=== PATIENT | male | born 1945 | race Caucasian/White ===

== ENCOUNTER → 2017-12-09 | Outpatient (CLI) | payer MEDICARE ==
[~2017-12-09] MED LIST: ALBU90OI6 INH; ALLO300 PO; ALPR.5 PO; AMIO200 PO; ASPI81EC PO; BUDE10.22; CALCA500CH; CELE200 PO; CEPASTAT PO; CLOP75 PO; ESCI10 PO; FINA5 PO; GABA300 PO; GLUC500 PO; LEVSOD100 PO; LEVSOD125 PO; METO25ER; METO25ER PO; Monodox100 MG PO; OMEP20ER PO; OXYC5 PO; PRED10 PO; PRED20 PO; PSYL5.85P PO; SIMV10 PO; SIMV40 PO; SIMV80 PO; TAMS.4ER PO; TIOT18; TRIA80TC TOP; Ventolin Soln3 ML INH; Ventolin/Prove6.7 GM INH; WARF3 PO; [UNRECOGNIZED DRUG - REMARK]
[2017-12-09 12:52] LABS: BASOPHILS ABSOLUTE AUTO 0.07 K/mm3 (0.00-0.23); BASOPHILS PERCENT AUTO 1 % (0-2); EOSINOPHILS ABSOLUTE AUTO 0.44 K/mm3 (0.00-0.68); EOSINOPHILS PERCENT AUTO 7 % (0-6); Hematocrit 44.1 % (37.0-53.0); IMMATURE GRAN ABSOLUTE AUTO 0.02 K/mm3 (0.00-0.10); IMMATURE GRAN PERCENT AUTO 0 % (0-1); LYMPHOCYTES ABSOLUTE AUTO 1.36 K/mm3 (0.84-5.20); LYMPHOCYTES PERCENT AUTO 22 % (21-46); MONOCYTES ABSOLUTE AUTO 0.76 K/mm3 (0.16-1.47); MONOCYTES PERCENT AUTO 12 % (4-13); Mean Corpuscular HGB 30.7 pg (26.0-34.0); Mean Corpuscular Volume 90 fL (80-100); NEUTROPHILS ABSOLUTE AUTO 3.62 K/mm3 (1.96-9.15); NEUTROPHILS PERCENT AUTO 58 % (41-73); Platelet Count 269 K/mm3 (150-400); RDW Coefficient Variation 13.5 % (11.7-14.2); RDW Standard Deviation 44.5 fL (35.1-46.3); Red Blood Cell Count 4.88 M/mm3 (4.30-5.90); White Blood Cell Count 6.27 K/mm3 (4.00-11.30)
[2017-12-09 13:04] LABS: Anion Gap 11 mmol/L (6-16); Blood Urea Nitrogen 10 mg/dL (8-24); Bun/Creatinine Ratio 8.7 (12.0-20.0); CO2, Blood 29 mmol/L (21-32); Calcium, Blood 8.8 mg/dL (8.5-10.1); Chloride, Blood 103 mmol/L (98-108); Creatinine, Blood 1.15 mg/dL (0.60-1.20); Glomerular Filtration Rate >60 (60-); Glucose, Blood 91 mg/dL (70-99); Potassium, Blood 3.9 mmol/L (3.5-5.5); Sodium, Blood 143 mmol/L (136-145)
[2017-12-09 13:05] LABS: Troponin I <0.017 ng/mL (0.000-0.040)
== END | disposition home or self-care (01) ==
LOC: LAB SHORT 12:45 → LAB EV 12:45
PROVIDERS: Physician Assistant Medical
DX: Z79.01 Long term (current) use of anticoagulants (principal); Z51.81 Encounter for therapeutic drug level monitoring; R06.00 Dyspnea, unspecified
CPT/HCPCS: 36416; 80048; 84484; 85025; 85379; 85610

== ENCOUNTER → 2019-01-11 | Outpatient (CLI) | payer MEDICARE ==
[~2019-01-11] MED LIST changes: +ACET325 PO; +ALBU90OI INH; +BUDE6HFA INH; +ELIQUIS2.5 MG PO; +GABA300; +LEVO-T137 MCG PO; +METAMUCIL MULT660 GM PO; +OMEPRAZOLE20 MG PO; +TIOT18 INH; +VITAMIN D32000 UNI2 PO; +Zocor20 MG PO
== END | disposition home or self-care (01) ==
LOC: PLD 16:36 → LAB SHORT 16:36
DX: B07.8 Other viral warts (principal)
CPT/HCPCS: 88305

== ENCOUNTER 2019-03-16 09:21 | Day surgery (SDC) | payer MEDICARE ==
[~2019-03-16] VITALS: Ht 193 cm; Wt 94.5 kg
== END 2019-03-16 12:37 | disposition home or self-care (01) ==
LOC: ORSCSDS 09:21
DX: Z12.11 Encounter for screening for malignant neoplasm of colon (principal); Z86.010 Personal history of colon polyps; K29.70 Gastritis, unspecified, without bleeding; K22.70 Barrett's esophagus without dysplasia; K44.9 Diaphragmatic hernia without obstruction or gangrene; D12.3 Benign neoplasm of transverse colon; D12.2 Benign neoplasm of ascending colon; D12.5 Benign neoplasm of sigmoid colon; K57.30 Diverticulosis of large intestine without perforation or abscess without bleeding; K64.8 Other hemorrhoids; Z86.718 Personal history of other venous thrombosis and embolism; Z79.01 Long term (current) use of anticoagulants; I48.91 Unspecified atrial fibrillation; Z86.73 Personal history of transient ischemic attack (TIA), and cerebral infarction without residual deficits; E03.9 Hypothyroidism, unspecified; Z87.891 Personal history of nicotine dependence; Z79.899 Other long term (current) drug therapy
CPT/HCPCS: 88305; 88341; 88342; J2704; J7120

== ENCOUNTER 2020-05-02 12:56 | Emergency (ER) | payer MEDICARE ==
[~2020-05-02] VITALS: Ht 193 cm; Wt 210.0 kg
[~2020-05-02 12:56] MED LIST changes: -GABA300; +Loperamide2 MG PO
[2020-05-02 13:44] LABS: BASOPHILS ABSOLUTE AUTO 0.05 K/mm3 (0.00-0.23); BASOPHILS PERCENT AUTO 1 % (0-2); EOSINOPHILS PERCENT AUTO 1 % (0-6); Hematocrit 45.6 % (37.0-53.0); Hemoglobin 14.7 g/dL (13.5-17.5); IMMATURE GRAN ABSOLUTE AUTO 0.05 K/mm3 (0.00-0.10); IMMATURE GRAN PERCENT AUTO 1 % (0-1); LYMPHOCYTES ABSOLUTE AUTO 2.22 K/mm3 (0.84-5.20); LYMPHOCYTES PERCENT AUTO 25 % (21-46); MONOCYTES ABSOLUTE AUTO 1.26 K/mm3 (0.16-1.47); MONOCYTES PERCENT AUTO 14 % (4-13); Mean Corpuscular HGB 29.6 pg (26.0-34.0); Mean Corpuscular HGB Conc 32.2 g/dL (31.5-36.5); Mean Corpuscular Volume 92 fL (80-100); Mean Platelet Volume 9.5 fL (9.1-12.4); NEUTROPHILS ABSOLUTE AUTO 5.28 K/mm3 (1.96-9.15); NEUTROPHILS PERCENT AUTO 59 % (41-73); Platelet Count 353 K/mm3 (150-400); RDW Standard Deviation 43.9 fL (35.1-46.3); Red Blood Cell Count 4.97 M/mm3 (4.30-5.90); White Blood Cell Count 8.96 K/mm3 (4.00-11.30)
[2020-05-02 14:09] LABS: Alanine Aminotransfer (ALT/SGP 16 U/L (12-78); Albumin, Blood 3.8 g/dL (3.4-5.0); Albumin/Globulin Ratio 1.2 (0.8-1.8); Alk Phos 65 U/L (50-136); Anion Gap 8 mmol/L (6-16); Aspartate Aminotrans (AST/SGOT 19 U/L (12-37); Bilirubin, Total 0.9 mg/dL (0.1-1.0); Blood Urea Nitrogen 17 mg/dL (8-24); Bun/Creatinine Ratio 16.3 (12.0-20.0); CO2, Blood 23 mmol/L (21-32); Calcium, Blood 8.8 mg/dL (8.5-10.1); Chloride, Blood 109 mmol/L (98-108); Creatinine, Blood 1.04 mg/dL (0.60-1.20); Globulin, Blood 3.3 g/dL (2.2-4.0); Glomerular Filtration Rate >60 (60-); Glucose, Blood 105 mg/dL (70-99); Potassium, Blood 4.3 mmol/L (3.5-5.5); Sodium, Blood 140 mmol/L (136-145); Total Protein, Blood 7.1 g/dL (6.4-8.2); Troponin I <0.015 ng/mL (0.000-0.040)
== END 2020-05-02 16:55 | disposition home or self-care (01) ==
LOC: ER 12:56
PROVIDERS: Physician Assistant
DX: R55 Syncope and collapse (principal); E86.0 Dehydration; I48.91 Unspecified atrial fibrillation; J44.9 Chronic obstructive pulmonary disease, unspecified; K21.9 Gastro-esophageal reflux disease without esophagitis; Z88.5 Allergy status to narcotic agent; Z86.73 Personal history of transient ischemic attack (TIA), and cerebral infarction without residual deficits; Z79.899 Other long term (current) drug therapy
CPT/HCPCS: 36415; 70450; 80053; 84484; 85025; 93005; 93010; 96360; 99284-25; J7030

== ENCOUNTER 2020-10-08 10:45 | Emergency (ER) | payer MEDICARE ==
[~2020-10-08] VITALS: Ht 193 cm; Wt 99.8 kg
[2020-10-08 11:28] LABS: BASOPHILS ABSOLUTE AUTO 0.06 K/mm3 (0.00-0.23); BASOPHILS PERCENT AUTO 1 % (0-2); EOSINOPHILS ABSOLUTE AUTO 0.37 K/mm3 (0.00-0.68); EOSINOPHILS PERCENT AUTO 5 % (0-6); Hemoglobin 14.4 g/dL (13.5-17.5); IMMATURE GRAN ABSOLUTE AUTO 0.03 K/mm3 (0.00-0.10); IMMATURE GRAN PERCENT AUTO 0 % (0-1); LYMPHOCYTES PERCENT AUTO 20 % (21-46); MONOCYTES ABSOLUTE AUTO 0.82 K/mm3 (0.16-1.47); MONOCYTES PERCENT AUTO 12 % (4-13); Mean Corpuscular HGB 28.6 pg (26.0-34.0); Mean Corpuscular Volume 89 fL (80-100); Mean Platelet Volume 9.6 fL (9.1-12.4); NEUTROPHILS ABSOLUTE AUTO 4.24 K/mm3 (1.96-9.15); NEUTROPHILS PERCENT AUTO 61 % (41-73); Platelet Count 324 K/mm3 (150-400); RDW Coefficient Variation 14.7 % (11.7-14.2); RDW Standard Deviation 48.1 fL (35.1-46.3); Red Blood Cell Count 5.04 M/mm3 (4.30-5.90); White Blood Cell Count 6.92 K/mm3 (4.00-11.30)
[2020-10-08 11:56] LABS: Alanine Aminotransfer (ALT/SGP 20 U/L (12-78); Albumin/Globulin Ratio 1.1 (0.8-1.8); Alk Phos 67 U/L (50-136); Anion Gap 5 mmol/L (6-16); Aspartate Aminotrans (AST/SGOT 22 U/L (12-37); Blood Urea Nitrogen 12 mg/dL (8-24); Bun/Creatinine Ratio 12.7 (12.0-20.0); CO2, Blood 28 mmol/L (21-32); Calcium, Blood 8.9 mg/dL (8.5-10.1); Chloride, Blood 106 mmol/L (98-108); Creatinine, Blood 0.95 mg/dL (0.60-1.20); Globulin, Blood 3.5 g/dL (2.2-4.0); Glomerular Filtration Rate >60 (60-); Glucose, Blood 91 mg/dL (70-99); Sodium, Blood 139 mmol/L (136-145); Total Protein, Blood 7.5 g/dL (6.4-8.2)
[2020-10-08] MEDS ORDERED: PRED20 PO (13:41)
[2020-10-08] MEDS ORDERED: ALBU90OI INH (13:41)
== END 2020-10-08 14:00 | disposition home or self-care (01) ==
LOC: ER 10:45
PROVIDERS: Emergency Medicine
DX: J44.1 Chronic obstructive pulmonary disease with (acute) exacerbation (principal)
CPT/HCPCS: 36415; 71045; 80053; 85025; 93005; 93010; 94644; 96374; 99285-25; J2930

== ENCOUNTER 2020-11-23 10:25 | Day surgery (SDC) | payer MEDICARE ==
[~2020-11-23] VITALS: Ht 193 cm; Wt 90.0 kg
[~2020-11-23 10:25] MED LIST changes: +Acetaminophen325 M1 PO; +ELIQUIS5 MG PO; +Flomax0.4 MG PO; +LEVSOD137 PO; +SYMBICORT 16010.2 GM INH; +ZOCOR20 MG PO; +Zyloprim300 MG PO
[2020-11-23 11:40] LABS: BASOPHILS ABSOLUTE AUTO 0.07 K/mm3 (0.00-0.23); BASOPHILS PERCENT AUTO 1 % (0-2); EOSINOPHILS PERCENT AUTO 3 % (0-6); Hematocrit 39.8 % (37.0-53.0); Hemoglobin 12.8 g/dL (13.5-17.5); IMMATURE GRAN ABSOLUTE AUTO 0.04 K/mm3 (0.00-0.10); IMMATURE GRAN PERCENT AUTO 1 % (0-1); LYMPHOCYTES PERCENT AUTO 20 % (21-46); MONOCYTES ABSOLUTE AUTO 0.97 K/mm3 (0.16-1.47); MONOCYTES PERCENT AUTO 15 % (4-13); Mean Corpuscular HGB 28.7 pg (26.0-34.0); Mean Corpuscular HGB Conc 32.2 g/dL (31.5-36.5); Mean Corpuscular Volume 89 fL (80-100); Mean Platelet Volume 9.3 fL (9.1-12.4); NEUTROPHILS ABSOLUTE AUTO 3.79 K/mm3 (1.96-9.15); NEUTROPHILS PERCENT AUTO 60 % (41-73); Platelet Count 454 K/mm3 (150-400); RDW Coefficient Variation 14.3 % (11.7-14.2); RDW Standard Deviation 46.6 fL (35.1-46.3); Red Blood Cell Count 4.46 M/mm3 (4.30-5.90); White Blood Cell Count 6.37 K/mm3 (4.00-11.30)
[2020-11-23 12:00] LABS: International Normalized Ratio 1.03; Prothrombin Time Results 11.1 Sec (9.7-11.5)
[2020-11-23 12:05] LABS: Anion Gap 4 mmol/L (6-16); Blood Urea Nitrogen 9 mg/dL (8-24); Bun/Creatinine Ratio 8.7 (12.0-20.0); CO2, Blood 27 mmol/L (21-32); Calcium, Blood 8.2 mg/dL (8.5-10.1); Chloride, Blood 106 mmol/L (98-108); Creatinine, Blood 1.03 mg/dL (0.60-1.20); Glomerular Filtration Rate >60 (60-); Glucose, Blood 77 mg/dL (70-99); Potassium, Blood 3.9 mmol/L (3.5-5.5); Sodium, Blood 137 mmol/L (136-145)
== END 2020-11-23 14:33 | disposition home or self-care (01) ==
LOC: MHTC 10:25
PROVIDERS: Radiology Diagnostic Radiology
DX: I86.1 Scrotal varices (principal); I48.91 Unspecified atrial fibrillation; J44.9 Chronic obstructive pulmonary disease, unspecified; K21.9 Gastro-esophageal reflux disease without esophagitis; M10.9 Gout, unspecified; E78.5 Hyperlipidemia, unspecified; E03.9 Hypothyroidism, unspecified; I10 Essential (primary) hypertension; G47.33 Obstructive sleep apnea (adult) (pediatric); Z86.711 Personal history of pulmonary embolism; Z87.891 Personal history of nicotine dependence; Z88.6 Allergy status to analgesic agent; Z88.5 Allergy status to narcotic agent; Z79.01 Long term (current) use of anticoagulants
CPT/HCPCS: 80048; 85025; 85610

== ENCOUNTER 2021-01-17 06:11 | Day surgery (SDC) | payer MEDICARE ==
[~2021-01-17] VITALS: Ht 195.6 cm; Wt 90.0 kg
== END 2021-01-17 13:45 | disposition home or self-care (01) ==
LOC: MHTC 06:11 → ORSCMMR 06:12 → MHTC 06:30
DX: I86.1 Scrotal varices (principal); Z88.5 Allergy status to narcotic agent; Z88.8 Allergy status to other drugs, medicaments and biological substances
CPT/HCPCS: 36012; 37241; 75825; 75833; 76937; 99152; 99153; C1769; C1887; C1894; J2250; J3010; J7030; J7040; Q9967

== ENCOUNTER 2021-03-30 06:00 | Day surgery (SDC) | payer MEDICARE | END 2021-03-30 09:50 | disposition home or self-care (01) | LOC: ORSCSDS 06:00 | DX: D50.9 Iron deficiency anemia, unspecified (principal); Z53.9 Procedure and treatment not carried out, unspecified reason | CPT/HCPCS: J7120 ==

== ENCOUNTER 2021-04-11 09:23 | Day surgery (SDC) | payer MEDICARE ==
[~2021-04-11] VITALS: Ht 195.6 cm; Wt 93.4 kg
== END 2021-04-11 11:40 | disposition home or self-care (01) ==
LOC: ORSCSDS 09:23
PROVIDERS: Internal Medicine Gastroenterology
PROC: 0DJ08ZZ Inspection of Upper Intestinal Tract, Via Natural or Artificial Opening Endoscopic (ICD-10-PCS; principal; 2021-04-11 10:45)
DX: K22.70 Barrett's esophagus without dysplasia (principal); D50.9 Iron deficiency anemia, unspecified; K44.9 Diaphragmatic hernia without obstruction or gangrene; I48.91 Unspecified atrial fibrillation; Z87.891 Personal history of nicotine dependence; Z79.01 Long term (current) use of anticoagulants; Z79.899 Other long term (current) drug therapy
CPT/HCPCS: J2704; J7120

== ENCOUNTER → 2021-11-01 | Outpatient (CLI) | payer MEDICARE ==
[2021-11-01 15:04] LABS: Adenovirus F 40/41 Not Detected (NOT DETECT); Astrovirus Not Detected (NOT DETECT); Campylobacter Sp Not Detected (NOT DETECT); Cryptosporidium Not Detected (NOT DETECT); Cyclospora Cayetanensis Not Detected (NOT DETECT); E. Coli O157 Not Detected (NOT DETECT); Entamoeba Histolytica Not Detected (NOT DETECT); Enteroaggregative E. coli-EAEC Not Detected (NOT DETECT); Enteropathogenic E. coli-EPEC Not Detected (NOT DETECT); Enterotoxigenic E. coli-ETEC Not Detected (NOT DETECT); Giardia Lamblia Not Detected (NOT DETECT); Norovirus GI/GII Not Detected (NOT DETECT); Plesiomonas Shigelloides Not Detected (NOT DETECT); Salmonella Sp Not Detected (NOT DETECT); Shiga Toxin-prod E. coli-STEC Not Detected (NOT DETECT); Shigella/Enteroin E. coli-EIEC Not Detected (NOT DETECT); Vibrio Cholerae Not Detected (NOT DETECT); Vibrio Sp Not Detected (NOT DETECT); Yersinia Enterocolitica Not Detected (NOT DETECT)
[2021-11-01 15:05] LABS: Rotavirus A Not Detected (NOT DETECT); Sapovirus Not Detected (NOT DETECT)
== END | disposition home or self-care (01) ==
LOC: LAB SHORT 10:46 → LAB 10:46 → LAB FUT 10-30 15:10
PROVIDERS: Internal Medicine
DX: R19.7 Diarrhea, unspecified (principal)
CPT/HCPCS: 87507

== ENCOUNTER 2021-11-20 07:05 | Inpatient (IN) | payer OTHER ==
[~2021-11-20] VITALS: Ht 195.6 cm; Wt 93.6 kg
[2021-11-20 07:36] LABS: BASOPHILS ABSOLUTE AUTO 0.03 K/mm3 (0.00-0.23); BASOPHILS PERCENT AUTO 0 % (0-2); EOSINOPHILS ABSOLUTE AUTO 0.04 K/mm3 (0.00-0.68); EOSINOPHILS PERCENT AUTO 0 % (0-6); Hematocrit 40.5 % (37.0-53.0); Hemoglobin 13.3 g/dL (13.5-17.5); IMMATURE GRAN ABSOLUTE AUTO 0.07 K/mm3 (0.00-0.10); IMMATURE GRAN PERCENT AUTO 0 % (0-1); LYMPHOCYTES ABSOLUTE AUTO 0.65 K/mm3 (0.84-5.20); LYMPHOCYTES PERCENT AUTO 4 % (21-46); MONOCYTES ABSOLUTE AUTO 1.82 K/mm3 (0.16-1.47); MONOCYTES PERCENT AUTO 11 % (4-13); Mean Corpuscular HGB Conc 32.8 g/dL (31.5-36.5); Mean Corpuscular Volume 91 fL (80-100); Mean Platelet Volume 10.6 fL (9.1-12.4); NEUTROPHILS ABSOLUTE AUTO 13.33 K/mm3 (1.96-9.15); NEUTROPHILS PERCENT AUTO 84 % (41-73); Platelet Count 246 K/mm3 (150-400); RDW Standard Deviation 43.4 fL (35.1-46.3); Red Blood Cell Count 4.44 M/mm3 (4.30-5.90); White Blood Cell Count 15.94 K/mm3 (4.00-11.30)
[2021-11-20 07:47] LABS: Albumin, Blood 2.9 g/dL (3.4-5.0); Albumin/Globulin Ratio 0.8 (0.8-1.8); Bilirubin, Total 1.4 mg/dL (0.1-1.0); Bun/Creatinine Ratio 27.4 (12.0-20.0); Calcium, Blood 8.5 mg/dL (8.5-10.1); Creatinine, Blood 0.84 mg/dL (0.60-1.20); Globulin, Blood 3.8 g/dL (2.2-4.0); Potassium, Blood 3.8 mmol/L (3.5-5.5); Total Protein, Blood 6.7 g/dL (6.4-8.2)
[2021-11-21 04:59] LABS: Hematocrit 40.2 % (37.0-53.0); Hemoglobin 13.5 g/dL (13.5-17.5); Mean Corpuscular HGB 30.3 pg (26.0-34.0); Mean Corpuscular HGB Conc 33.6 g/dL (31.5-36.5); Mean Corpuscular Volume 90 fL (80-100); Mean Platelet Volume 10.5 fL (9.1-12.4); Platelet Count 256 K/mm3 (150-400); RDW Coefficient Variation 12.8 % (11.7-14.2); RDW Standard Deviation 42.3 fL (35.1-46.3); Red Blood Cell Count 4.45 M/mm3 (4.30-5.90); White Blood Cell Count 8.79 K/mm3 (4.00-11.30)
[2021-11-21 05:21] LABS: Bun/Creatinine Ratio 35.6 (12.0-20.0); Calcium, Blood 8.6 mg/dL (8.5-10.1); Creatinine, Blood 0.73 mg/dL (0.60-1.20); Potassium, Blood 3.3 mmol/L (3.5-5.5)
--- NOTE | 2021-11-21 06:28 | NUR ---
PT IS A/O, ON BIOX, REFUSES CPAP, LEFT ELBOW SKINTEAR. STANDBY ASSIST TO RESTROOM, LIVES AT [facility].
--- NOTE | 2021-11-21 18:15 | NUR ---
SHIFT SUMMARY PT UP IN CHAIR THIS MORNING AND STAYED UP FOR APPROX 1.5 HOURS AND THEN PUT HIMSELF BACK IN BED. PULSE QUITE RAPID THIS MORNING WITH HEART RATE IN THE 130-150'S. GAVE HIME HIS SCHEDULED TOPROL AND NOTIFIED MD. HR IMPROVED TO 60-70'S PER CONTINUOUS PULSE OXIMETER. STATES HE GENERALLY USES CPAP AT HOME AND HAS NO PROBLEM WITH USING IT HERE WELL. THINKS HE MAY BE GOING HOME TOMORROW AND COMMENTING ON GETTING CLEAN CLOTHES FOR DISCHARGE. EXPLAINED TO HIM THAT CAN BE ARRANGED WHEN HE RECEIVES HIS DISCHARGE ORDERS. PT REPORTED HE TAKES 900MG GABAPENTIN TID AT HOME. CALLED AND SPOKE WITH [facility] WHO STATES MOST RECENT SCRIPT FAXED TO THEM WAS FOR 900MG BID. SPOKE WITH PT AND MD ABOUT THIS INCONSISTANCY. DENIES RESP DISTRESS THROUGH THE DAY. SATS IN LOW 90'S WHEN O2 FOUND OUT OF HIS NOSE. APPEARS SLIGHTLY MORE DISORIENTED THIS EVENING THAN THIS MORNING. HARD OF HEARING.
--- NOTE | 2021-11-22 05:03 | NUR ---
SHIFT SUMMARY 76 YR M ADMITTED ON 11/20/21 FOR PNEUMONIA. FULL CODE. NO ACUTE CHANGES THIS SHIFT. PT WOULD ONLY TAKE 1/2 OF HIS EVENING DOSE OF METOPROLOL STATING THAT IS WHAT HE TAKES AT HOME AND HE WAS NOT COMFORTABLE TAKING MORE THAN 1/2 OF THE PILL. HE SLEPT FOR A FEW HOUR BUT WOKE UP VERY CONFUSED AND NOT SURE WHERE HE WAS. HE TORE OFF HIS ID BAND AND PULSE OX SENSOR FROM HIS FINGER. ONCE HE WAS REORIENTED HE APOLOGIZED SEVERAL TIMES FOR THE CONFUSION. HE WAS REASSURED THAT HE DID NOTHING WRONG AND THAT WE UNDERSTAND. HE IS A VERY PLEASANT MAN AND IS COOPERATIVE WITH HIS CARE FOR THE MOST PART. IV BANDAGE WAS CHANGED AND WRAPPED W/ COBAN TO PREVENT IT FROM BEING PULLED ON WHEN PT IS CONFUSED.
[2021-11-22 05:43] LABS: Bun/Creatinine Ratio 40.8 (12.0-20.0); Calcium, Blood 8.6 mg/dL (8.5-10.1); Creatinine, Blood 0.88 mg/dL (0.60-1.20); Potassium, Blood 3.4 mmol/L (3.5-5.5)
--- NOTE | 2021-11-22 16:31 | NUR ---
SHIFT SUMMARY O2 ON AND OFF THROUGH THE DAY. SATS CAN DROP TO 88% ON RA BUT THEN POPS BACK UP TO LOW 90'S. DENIES RESP DISTRESS BUT GETS SOB WITH ACTIVITY. VISITORS IN TODAY AND PT CHATTING WITH NO DYSPMEA. AFEBRILE. HEART RATE 80'S TO 110'S. DENIES FEELING ANY CHEST DISCOMFORT. HOPES TO GO HOME TOMORROW BUT ENCOURAGED TO TAKE ONE DAY AT A TIME. NO S/S OF DISORIENTATION SO FAR TODAY.
--- NOTE | 2021-11-23 04:40 | NUR ---
SHIFT SUMMARY 76 YR M ADMITTED ON 11/20/21 FOR PNEUMONIA. FULL CODE. NO ACUTE CHANGES THIS SHIFT. HE ALLOWED RT TO SET HIM UP W/ CPAP LAST NIGHT AND HE MAINTAINED SATS IN THE 90'S FOR THE ENTIRE TIME HE HAD IT ON. HE APPEARS TO HAVE SLEPT COMFORTABLY FOR MOST OF THE NIGHT AND DID NOT WAKE UP CONFUSED AND DISORIENTED LIKE HE DID LAST NIGHT. HE IS A VERY PLEASANT MAN AND IS THANKFUL AND APPRECIATIVE FOR THE CARE HE RECEIVES. HE IS COOPERATIVE WELL. PILLS WHOLE W/ WATER AND IS ABLE TO AMBULATE TO BATHROOM.
[2021-11-23] MEDS ORDERED: DELTASONE20 MG PO (12:40)
[2021-11-23] MEDS ORDERED: GUAI600T33 PO (12:41)
[2021-11-23] MEDS ORDERED: AMOCLA875 PO (12:42)
--- NOTE | 2021-11-23 14:35 | NUR ---
PATIENT WAS DISCHARGED TO HOME 1430. TRANSPORTATION WAS PROVIDED BY A FRIEND. THE PATIENT WAS WHEELED TO THE EXIT AFTER DISCHARGE INSTRUCTIONS, PATIENT EDUCATION AND FOLLOW UP APPTS WERE REVIEWED. IV WAS DISCONTINUED BY MANAGER UTILITY.
[2021-11-24] MEDS ORDERED: AZIT250 PO (11:06)
== END 2021-11-23 14:34 | disposition home or self-care (01) | DRG 871 ==
LOC: ER 07:05 → ERHOLD 11:09 → MEDS 16:12
PROVIDERS: Emergency Medicine; Nurse Practitioner Acute Care; ADMIT Internal Medicine
DX: A41.9 Sepsis, unspecified organism (principal); J18.9 Pneumonia, unspecified organism; J96.21 Acute and chronic respiratory failure with hypoxia; J44.0 Chronic obstructive pulmonary disease with (acute) lower respiratory infection; F11.20 Opioid dependence, uncomplicated; J44.1 Chronic obstructive pulmonary disease with (acute) exacerbation; G47.33 Obstructive sleep apnea (adult) (pediatric); Z20.822 Contact with and (suspected) exposure to COVID-19; I48.91 Unspecified atrial fibrillation; K21.9 Gastro-esophageal reflux disease without esophagitis; G89.29 Other chronic pain; E03.9 Hypothyroidism, unspecified; E87.6 Hypokalemia; M10.9 Gout, unspecified; E78.5 Hyperlipidemia, unspecified; K58.9 Irritable bowel syndrome, unspecified; Z86.73 Personal history of transient ischemic attack (TIA), and cerebral infarction without residual deficits; Z86.711 Personal history of pulmonary embolism; Z86.718 Personal history of other venous thrombosis and embolism; Z99.89 Dependence on other enabling machines and devices; Z90.49 Acquired absence of other specified parts of digestive tract; Z98.890 Other specified postprocedural states; Z88.6 Allergy status to analgesic agent; Z88.8 Allergy status to other drugs, medicaments and biological substances; Z79.899 Other long term (current) drug therapy
CPT/HCPCS: 36415; 71045; 80048; 80053; 83605; 83880; 84145; 84484; 85025; 85027; 87040; 87070; 87205; 93005; 93010; 94640; 94660; 94664; 94760; 94762; 96374; 99285-25; A9270; J0696; J2920

== ENCOUNTER → 2022-02-16 | Outpatient (CLI) | payer MEDICARE ==
[~2022-02-16] MED LIST changes: +AMOCLA875 PO; +AZIT250 PO; +DELTASONE20 MG PO; +GUAI600T33 PO
[2022-02-20 12:56] LABS: Adenovirus F 40/41 Not Detected (NOT DETECT); Astrovirus Not Detected (NOT DETECT); Campylobacter Sp Not Detected (NOT DETECT); Cryptosporidium Not Detected (NOT DETECT); Cyclospora Cayetanensis Not Detected (NOT DETECT); E. Coli O157 Not Detected (NOT DETECT); Entamoeba Histolytica Not Detected (NOT DETECT); Enteroaggregative E. coli-EAEC Not Detected (NOT DETECT); Enteropathogenic E. coli-EPEC Not Detected (NOT DETECT); Enterotoxigenic E. coli-ETEC Not Detected (NOT DETECT); Giardia Lamblia Not Detected (NOT DETECT); Norovirus GI/GII Not Detected (NOT DETECT); Plesiomonas Shigelloides Not Detected (NOT DETECT); Rotavirus A Not Detected (NOT DETECT); Salmonella Sp Not Detected (NOT DETECT); Sapovirus Not Detected (NOT DETECT); Shiga Toxin-prod E. coli-STEC Not Detected (NOT DETECT); Shigella/Enteroin E. coli-EIEC Not Detected (NOT DETECT); Vibrio Cholerae Not Detected (NOT DETECT); Vibrio Sp Not Detected (NOT DETECT); Yersinia Enterocolitica Not Detected (NOT DETECT)
== END | disposition home or self-care (01) ==
LOC: LAB SHORT 08:26
PROVIDERS: Internal Medicine
DX: R19.7 Diarrhea, unspecified (principal)
CPT/HCPCS: 87507

== ENCOUNTER 2022-07-11 05:34 | Day surgery (SDC) | payer OTHER, MEDICARE ==
[~2022-07-11] VITALS: Ht 193 cm; Wt 96.0 kg
[2022-07-11] MEDS ORDERED: ACET325 PO (06:47)
[2022-07-11] MEDS ORDERED: ALBU90OI INH (06:54)
[2022-07-11] MEDS ORDERED: ASCO500 PO (06:55)
[2022-07-11] MEDS ORDERED: SPIRIVA RESPIMAT4 G3 INH (06:55)
[2022-07-11 07:27] LABS: Hematocrit 38.1 % (37.0-53.0); Hemoglobin 12.8 g/dL (13.5-17.5); Mean Corpuscular HGB 30.9 pg (26.0-34.0); Mean Corpuscular HGB Conc 33.6 g/dL (31.5-36.5); Mean Corpuscular Volume 92 fL (80-100); Mean Platelet Volume 9.4 fL (9.1-12.4); Platelet Count 312 K/mm3 (150-400); RDW Coefficient Variation 13.4 % (11.7-14.2); RDW Standard Deviation 45.4 fL (35.1-46.3); Red Blood Cell Count 4.14 M/mm3 (4.30-5.90); White Blood Cell Count 8.03 K/mm3 (4.00-11.30)
[2022-07-11 07:33] LABS: Bun/Creatinine Ratio 13.7 (12.0-20.0); Calcium, Blood 8.5 mg/dL (8.5-10.1); Creatinine, Blood 0.88 mg/dL (0.60-1.20); Potassium, Blood 4.2 mmol/L (3.5-5.5)
[2022-07-11 07:34] LABS: International Normalized Ratio 1.04; Prothrombin Time Results 10.9 Sec (9.7-11.5)
--- NOTE | 2022-07-11 10:29 | NUR ---
0905 PATIENT RETURNED FROM THE [facility] TO THE [facility] VIA RECLINER AND PLACED ON THE MONITOR, SBAR RECEIVED FROM LEXIE HERNÁNDEZ AND RT MARISOL. CALL LIGHT IN REACH. VVS. RIGHT RADIAL TR BAND IN PLACE WITH 12 ML OF AIR IN THE BAND, NO BLEEDING, NO HEMATOMA NOTED. REVEIWED ORDERS.
--- NOTE | 2022-07-11 10:32 | NUR ---
1030 BEGAN TAKING AIR FROM THE TR BAND. PATIENT C.O HEAD ACHE AND LEFT HIP PAIN FROM SITTING FOR LONG PERIOD OF TIME. 325 MG PO TYLENOL GIVEN AND PAITENT REPOSITIONED SELF IN THE CHAIR.
--- NOTE | 2022-07-11 10:33 | NUR ---
CONTINUED TO REMOVE AIR FROM THE TR BAND. NO BLEEING NOTED. NO HEMATOMA NOTED. PATIENT CALLED FOR NETWORK SUPPORT MANAGER TO BE HERE AT 1130, OENDING DISCHARGE.
--- NOTE | 2022-07-11 12:10 | NUR ---
1100 PATIENT TR BAND REMOVED, PATIENT DRESSED. BELONGINGS GATHERED. REVEIWED DISCHARGE INSTRUCTIONS WITH THE PATIENT. TR BAND REMOVED AND SITE CLEANED. CLOTH DOT APPLIED. WHITE BOARD REAPPLIED. ALL QUESTIONS ANSWERED. NIR WHEELCHAIRED TO THE PATIENT ENTRANCE AND MET WITH FILAMENT COIL WINDER. DISCHARGED HOME.
== END 2022-07-11 12:54 | disposition home or self-care (01) ==
LOC: MHTC 05:34
PROVIDERS: Internal Medicine Cardiovascular Disease
DX: I25.10 Atherosclerotic heart disease of native coronary artery without angina pectoris (principal); J43.9 Emphysema, unspecified; I48.0 Paroxysmal atrial fibrillation; G47.33 Obstructive sleep apnea (adult) (pediatric); F32.A Depression, unspecified; M25.559 Pain in unspecified hip; G89.29 Other chronic pain; I50.9 Heart failure, unspecified; K21.9 Gastro-esophageal reflux disease without esophagitis; E78.5 Hyperlipidemia, unspecified; E03.9 Hypothyroidism, unspecified; Z88.5 Allergy status to narcotic agent; Z86.73 Personal history of transient ischemic attack (TIA), and cerebral infarction without residual deficits
CPT/HCPCS: 76937; 80048; 85027; 85610; 93454; 99152; A9270; C1769; C1887; C1894; J1644; J2250; J3010; J7030; J7050; Q9967

== ENCOUNTER 2022-10-05 10:21 | Observation (INO) | payer MEDICARE ==
[~2022-10-05] VITALS: Ht 195.6 cm; Wt 106.6 kg
[~2022-10-05 10:21] MED LIST changes: +ALPR.25; +ASCO500 PO; +BISA10S; +CLIN150 PO; +FEROSUL325 MG; +Percocet 5-3251 EACH PO; +SPIRIVA RESPIMAT4 G3 INH; +Vitamin D1000 UNI1; +Voltaren100 GM
[2022-10-05 11:13] LABS: BASOPHILS ABSOLUTE AUTO 0.04 K/mm3 (0.00-0.23); BASOPHILS PERCENT AUTO 0 % (0-2); EOSINOPHILS ABSOLUTE AUTO 0.13 K/mm3 (0.00-0.68); EOSINOPHILS PERCENT AUTO 1 % (0-6); Hematocrit 29.2 % (37.0-53.0); Hemoglobin 9.8 g/dL (13.5-17.5); IMMATURE GRAN ABSOLUTE AUTO 0.07 K/mm3 (0.00-0.10); IMMATURE GRAN PERCENT AUTO 1 % (0-1); LYMPHOCYTES ABSOLUTE AUTO 1.28 K/mm3 (0.84-5.20); LYMPHOCYTES PERCENT AUTO 12 % (21-46); MONOCYTES ABSOLUTE AUTO 1.38 K/mm3 (0.16-1.47); MONOCYTES PERCENT AUTO 13 % (4-13); Mean Corpuscular HGB 30.9 pg (26.0-34.0); Mean Corpuscular HGB Conc 33.6 g/dL (31.5-36.5); Mean Corpuscular Volume 92 fL (80-100); Mean Platelet Volume 10.5 fL (9.1-12.4); NEUTROPHILS ABSOLUTE AUTO 7.65 K/mm3 (1.96-9.15); NEUTROPHILS PERCENT AUTO 73 % (41-73); Platelet Count 256 K/mm3 (150-400); RDW Coefficient Variation 12.8 % (11.7-14.2); Red Blood Cell Count 3.17 M/mm3 (4.30-5.90); White Blood Cell Count 10.55 K/mm3 (4.00-11.30)
[2022-10-05 11:21] LABS: Base Excess Venous -0.5 mmol/L; Bicarbonate Venous 23.5 mmol/L (24.0-30.0); PCO2 Venous 44.9 mmHg (38-42); pH Blood Venous 7.35 (7.34-7.37)
[2022-10-05 11:30] LABS: Magnesium, Blood 2.3 mg/dL (1.6-2.4)
[2022-10-05 11:31] LABS: Albumin, Blood 2.7 g/dL (3.4-5.0); Albumin/Globulin Ratio 0.8 (0.8-1.8); Bilirubin, Total 0.6 mg/dL (0.1-1.0); Bun/Creatinine Ratio 28.8 (12.0-20.0); Calcium, Blood 8.4 mg/dL (8.5-10.1); Creatinine, Blood 1.25 mg/dL (0.60-1.20); Globulin, Blood 3.6 g/dL (2.2-4.0); Potassium, Blood 4.2 mmol/L (3.5-5.5); Total Protein, Blood 6.3 g/dL (6.4-8.2)
[2022-10-05 12:21] LABS: Source, Urine Clean Catch
[2022-10-05 12:55] LABS: Appearance, Urine Clear (Clear); Bilirubin, Urine Neg (Neg); Blood, Urine Neg (Neg); Color, Urine Yellow (P-Yellow); Glucose Qualitative, Urine Neg (Neg); Ketones, Urine Neg (Neg); Leukocyte Esterase, Urine Neg (Neg); Nitrite, Urine Neg (Neg); Protein, Urine 1+ (Neg); Urobilinogen, Urine NORM (Normal)
[2022-10-05 15:28] VITALS: BP 122/64
[2022-10-05 19:39] VITALS: BP 108/64
[2022-10-06 04:43] LABS: BASOPHILS ABSOLUTE AUTO 0.04 K/mm3 (0.00-0.23); BASOPHILS PERCENT AUTO 1 % (0-2); EOSINOPHILS ABSOLUTE AUTO 0.06 K/mm3 (0.00-0.68); EOSINOPHILS PERCENT AUTO 1 % (0-6); Hematocrit 30.9 % (37.0-53.0); Hemoglobin 10.3 g/dL (13.5-17.5); IMMATURE GRAN ABSOLUTE AUTO 0.11 K/mm3 (0.00-0.10); IMMATURE GRAN PERCENT AUTO 1 % (0-1); LYMPHOCYTES PERCENT AUTO 11 % (21-46); MONOCYTES ABSOLUTE AUTO 1.14 K/mm3 (0.16-1.47); MONOCYTES PERCENT AUTO 14 % (4-13); Mean Corpuscular HGB 30.5 pg (26.0-34.0); Mean Corpuscular HGB Conc 33.3 g/dL (31.5-36.5); Mean Corpuscular Volume 91 fL (80-100); Mean Platelet Volume 10.1 fL (9.1-12.4); NEUTROPHILS PERCENT AUTO 73 % (41-73); Platelet Count 322 K/mm3 (150-400); RDW Coefficient Variation 12.7 % (11.7-14.2); RDW Standard Deviation 42.4 fL (35.1-46.3); Red Blood Cell Count 3.38 M/mm3 (4.30-5.90); White Blood Cell Count 8.15 K/mm3 (4.00-11.30)
[2022-10-06 04:54] VITALS: BP 135/79
[2022-10-06 05:00] LABS: Bun/Creatinine Ratio 35.7 (12.0-20.0); Calcium, Blood 8.5 mg/dL (8.5-10.1); Creatinine, Blood 0.81 mg/dL (0.60-1.20); Potassium, Blood 3.3 mmol/L (3.5-5.5)
[2022-10-06 08:19] VITALS: BP 127/89
[2022-10-06 16:50] VITALS: BP 147/71
[2022-10-06 19:54] VITALS: BP 154/83
[2022-10-07 04:19] LABS: Hematocrit 29.4 % (37.0-53.0); Mean Corpuscular HGB 30.5 pg (26.0-34.0); Mean Corpuscular Volume 90 fL (80-100); Mean Platelet Volume 9.6 fL (9.1-12.4); Platelet Count 354 K/mm3 (150-400); RDW Coefficient Variation 12.7 % (11.7-14.2); RDW Standard Deviation 41.7 fL (35.1-46.3); Red Blood Cell Count 3.28 M/mm3 (4.30-5.90); White Blood Cell Count 8.26 K/mm3 (4.00-11.30)
[2022-10-07 04:48] LABS: Albumin, Blood 2.5 g/dL (3.4-5.0); Anion Gap 3 mmol/L (6-16); Blood Urea Nitrogen 24 mg/dL (8-24); Bun/Creatinine Ratio 29.6 (12.0-20.0); CO2, Blood 24 mmol/L (21-32); Calcium, Blood 8.1 mg/dL (8.5-10.1); Chloride, Blood 107 mmol/L (98-108); Creatinine, Blood 0.81 mg/dL (0.60-1.20); Glomerular Filtration Rate 90 (60-); Glucose, Blood 107 mg/dL (70-99); Phosphorus, Blood 2.3 mg/dL (2.5-4.9); Potassium, Blood 3.4 mmol/L (3.5-5.5); Sodium, Blood 134 mmol/L (136-145); Thyroid Stimulating Hormone 0.831 uIU/mL (0.360-4.800)
[2022-10-07 05:09] VITALS: BP 128/87
[2022-10-07 08:08] VITALS: BP 126/86
[2022-10-07 08:45] VITALS: BP 147/72
[2022-10-07 14:19] VITALS: BP 140/88
[2022-10-07 15:17] VITALS: BP 141/75
[2022-10-07 20:00] VITALS: BP 142/77
[2022-10-08 02:28] VITALS: BP 120/76
[2022-10-08 04:21] LABS: PCO2 Arterial 28.2 mmHg (35-45); PO2 Arterial 95.2 mmHg (80-100); pH Blood Arterial 7.51 (7.35-7.45)
[2022-10-08 04:41] LABS: Albumin, Blood 2.6 g/dL (3.4-5.0); Anion Gap 5 mmol/L (6-16); Blood Urea Nitrogen 13 mg/dL (8-24); Bun/Creatinine Ratio 17.2 (12.0-20.0); CO2, Blood 23 mmol/L (21-32); Chloride, Blood 105 mmol/L (98-108); Creatinine, Blood 0.75 mg/dL (0.60-1.20); Glomerular Filtration Rate 92 (60-); Glucose, Blood 104 mg/dL (70-99); Phosphorus, Blood 2.7 mg/dL (2.5-4.9); Potassium, Blood 3.5 mmol/L (3.5-5.5); Sodium, Blood 133 mmol/L (136-145)
[2022-10-08 07:02] VITALS: BP 147/84
[2022-10-08 14:07] VITALS: BP 137/83
[2022-10-08 19:19] VITALS: BP 148/79
[2022-10-08 20:44] VITALS: BP 137/80
[2022-10-09 03:08] VITALS: BP 142/96
[2022-10-09 07:14] VITALS: BP 138/79
== END 2022-10-09 15:09 | disposition home or self-care (01) ==
LOC: ER 10:21 → SURS 10:22
PROVIDERS: Internal Medicine; Student in an Organized Health Care Education/Training Program; ADMIT Family Medicine
DX: G92.8 Other toxic encephalopathy (principal); N17.9 Acute kidney failure, unspecified; E87.6 Hypokalemia; E87.1 Hypo-osmolality and hyponatremia; E83.39 Other disorders of phosphorus metabolism; D64.9 Anemia, unspecified; E86.0 Dehydration; I82.502 Chronic embolism and thrombosis of unspecified deep veins of left lower extremity; N40.0 Benign prostatic hyperplasia without lower urinary tract symptoms; M10.9 Gout, unspecified; E78.5 Hyperlipidemia, unspecified; I48.20 Chronic atrial fibrillation, unspecified; G47.33 Obstructive sleep apnea (adult) (pediatric); K21.9 Gastro-esophageal reflux disease without esophagitis; E03.9 Hypothyroidism, unspecified; J44.9 Chronic obstructive pulmonary disease, unspecified; Z96.642 Presence of left artificial hip joint; Z86.711 Personal history of pulmonary embolism; Z87.891 Personal history of nicotine dependence; Z88.5 Allergy status to narcotic agent; Z88.8 Allergy status to other drugs, medicaments and biological substances; Z79.890 Hormone replacement therapy; Z79.01 Long term (current) use of anticoagulants; Z79.899 Other long term (current) drug therapy
CPT/HCPCS: 36415; 36600; 70450; 71046; 72192; 73502; 80048; 80053; 80069; 82803; 83605; 83735; 84145; 84443; 85025; 85027; 93005; 93010; 93971; 94640; 94660; 94664; 94760; 94762; 96361; 96374; 96375; 97110; 97116; 97129; 97130; 97161; 97166; 97530; 97535; 99285-25; A9270; G0378; J1885; J7030; J7060

== ENCOUNTER 2022-10-13 19:37 | Emergency (ER) | payer MEDICARE ==
[~2022-10-13] VITALS: Ht 193 cm; Wt 111.6 kg
[2022-10-13 19:55] VITALS: BP 127/62
== END 2022-10-13 20:44 | disposition home or self-care (01) ==
LOC: ER 19:37
DX: L76.82 Other postprocedural complications of skin and subcutaneous tissue (principal); I48.91 Unspecified atrial fibrillation; Z88.5 Allergy status to narcotic agent; Z88.8 Allergy status to other drugs, medicaments and biological substances; Z79.899 Other long term (current) drug therapy; Z87.891 Personal history of nicotine dependence
CPT/HCPCS: 93005; 93010; 99283-25; A9270

== ENCOUNTER → 2023-04-30 | Outpatient (CLI) | payer MEDICARE | LOC: LAB 07:30 → LAB SHORT 07:30 → LAB FUT 04-17 12:00 | DX: R19.7 Diarrhea, unspecified (principal) | CPT/HCPCS: 82653 ==

== ENCOUNTER → 2023-07-31 | Outpatient (CLI) | payer MEDICARE | END | disposition home or self-care (01) | LOC: LAB 16:10 → LAB SHORT 16:10 | DX: N39.0 Urinary tract infection, site not specified (principal) | CPT/HCPCS: 87086 ==

== ENCOUNTER 2023-09-21 09:34 | Emergency (ER) | payer MEDICARE ==
[~2023-09-21] VITALS: Ht 195.6 cm; Wt 97.5 kg
[2023-09-21] MEDS ORDERED: Ipratropium/Albuterol SulF 2.5-0.5MG/3 ML Amp INH ONE (10:35)
[2023-09-21] MEDS ORDERED: MethylPREDNISolone Sod Succ 125 MG Vial IV ONE (10:35)
[2023-09-21 10:37] LABS: BASOPHILS ABSOLUTE AUTO 0.09 K/mm3 (0.00-0.23); BASOPHILS PERCENT AUTO 1 % (0-2); EOSINOPHILS ABSOLUTE AUTO 0.47 K/mm3 (0.00-0.68); EOSINOPHILS PERCENT AUTO 6 % (0-6); Hemoglobin 13.8 g/dL (13.5-17.5); IMMATURE GRAN ABSOLUTE AUTO 0.04 K/mm3 (0.00-0.10); IMMATURE GRAN PERCENT AUTO 1 % (0-1); LYMPHOCYTES ABSOLUTE AUTO 1.96 K/mm3 (0.84-5.20); LYMPHOCYTES PERCENT AUTO 25 % (21-46); MONOCYTES ABSOLUTE AUTO 0.97 K/mm3 (0.16-1.47); MONOCYTES PERCENT AUTO 12 % (4-13); Mean Corpuscular HGB 31.6 pg (26.0-34.0); Mean Corpuscular HGB Conc 32.9 g/dL (31.5-36.5); Mean Corpuscular Volume 96 fL (80-100); Mean Platelet Volume 9.8 fL (9.1-12.4); NEUTROPHILS ABSOLUTE AUTO 4.38 K/mm3 (1.96-9.15); NEUTROPHILS PERCENT AUTO 55 % (41-73); Platelet Count 364 K/mm3 (150-400); RDW Coefficient Variation 13.3 % (11.7-14.2); RDW Standard Deviation 47.8 fL (35.1-46.3); Red Blood Cell Count 4.37 M/mm3 (4.30-5.90); White Blood Cell Count 7.91 K/mm3 (4.00-11.30)
[2023-09-21 11:02] LABS: Albumin, Blood 3.8 g/dL (3.4-5.0); Albumin/Globulin Ratio 1.1 (0.8-1.8); Bilirubin, Total 0.7 mg/dL (0.1-1.0); Bun/Creatinine Ratio 14.2 (12.0-20.0); Calcium, Blood 8.9 mg/dL (8.5-10.1); Creatinine, Blood 0.91 mg/dL (0.60-1.20); Globulin, Blood 3.4 g/dL (2.2-4.0); Potassium, Blood 4.6 mmol/L (3.5-5.5); Total Protein, Blood 7.2 g/dL (6.4-8.2)
[2023-09-21 11:49] LABS: Influenza A, PCR NEGATIVE (NEGATIVE); Influenza B, PCR NEGATIVE (NEGATIVE); Resp Syncytial Virus, PCR NEGATIVE (NEGATIVE); SARS-Cov-2 (COVID-19) PCR, MMC NEGATIVE (NEGATIVE)
[2023-09-21 13:15] VITALS: BP 140/87
[2023-09-21] MEDS ORDERED: Azithromycin 250 MG Tab PO ONE (13:30)
[2023-09-21] MEDS ORDERED: METPRE4DP PO (13:30)
[2023-09-21] MEDS ORDERED: AZIT250 PO (13:30)
== END 2023-09-21 13:51 | disposition home or self-care (01) ==
LOC: ER 09:34
PROVIDERS: Emergency Medicine; Physician Assistant
DX: J44.0 Chronic obstructive pulmonary disease with (acute) lower respiratory infection (principal); J20.9 Acute bronchitis, unspecified; J44.1 Chronic obstructive pulmonary disease with (acute) exacerbation; J98.8 Other specified respiratory disorders; B97.89 Other viral agents as the cause of diseases classified elsewhere; Z88.8 Allergy status to other drugs, medicaments and biological substances; Z88.5 Allergy status to narcotic agent; Z79.899 Other long term (current) drug therapy
CPT/HCPCS: 0241U; 71046; 80053; 83880; 84484; 85025; 93005; 93010; 94640; 94664; 96374; 99285-25; A9270; J2930